=== PATIENT | male | born 1950 | race Caucasian/White ===

== ENCOUNTER → 2017-02-25 | Outpatient (CLI) | payer MEDICARE | END | disposition home or self-care (01) | LOC: CVU 09:24 | PROVIDERS: ATTEND Internal Medicine Cardiovascular Disease | DX: I70.203 Unspecified atherosclerosis of native arteries of extremities, bilateral legs (principal); I25.10 Atherosclerotic heart disease of native coronary artery without angina pectoris; E78.5 Hyperlipidemia, unspecified; Z95.5 Presence of coronary angioplasty implant and graft; Z87.891 Personal history of nicotine dependence | CPT/HCPCS: 93922; 93925; 93978 ==

== ENCOUNTER → 2017-12-16 | Outpatient (CLI) | payer MEDICARE ==
[~2017-12-16] MED LIST: AMLO10TA6 PO; ASPI-496 PO; FINA5TAB4 PO; LEVO137T3 PO; ROSU40TA PO; VALS1TAB26 PO
== END | disposition home or self-care (01) ==
LOC: RAD 10:09
PROVIDERS: ATTEND Urology
DX: N20.0 Calculus of kidney (principal); M51.36 Other intervertebral disc degeneration, lumbar region; M41.86 Other forms of scoliosis, lumbar region; N23 Unspecified renal colic; K40.20 Bilateral inguinal hernia, without obstruction or gangrene, not specified as recurrent; Z87.891 Personal history of nicotine dependence
CPT/HCPCS: 74176

== ENCOUNTER 2017-12-17 05:41 | Day surgery (SDC) | payer MEDICARE ==
[~2017-12-17] VITALS: Ht 180.3 cm; Wt 97.0 kg
[2017-12-17 06:32] VITALS: BP 128/79
[2017-12-17] MEDS ORDERED: LACTATED RINGERS 1,000 ML IV SCH (06:32)
[2017-12-17] MEDS ORDERED: GABAPENTIN 300 MG CAPSULE ONE (07:08)
[2017-12-17] MEDS ORDERED: ONDANSETRON ODT 8 MG ONE (07:09)
[2017-12-17] MEDS ORDERED: ACETAMINOPHEN 500 MG TABLET ONE (07:10)
[2017-12-17] MEDS ORDERED: GABAPENTIN 300 MG CAPSULE PO ONE (07:30)
[2017-12-17] MEDS ORDERED: ONDANSETRON ODT 8 MG PO ONE (07:30)
[2017-12-17] MEDS ORDERED: ACETAMINOPHEN 500 MG TABLET PO ONE (07:30)
[2017-12-17] MEDS ORDERED: FENTANYL PF 100 MCG/2ML ONE (07:31)
[2017-12-17] MEDS ORDERED: MIDAZOLAM 1 MG/ML, 2ML ONE (07:31)
[2017-12-17] MEDS ORDERED: EPHEDRINE 50 MG/ML, 1ML ONE (07:46)
[2017-12-17] MEDS ORDERED: FENTANYL PF 100 MCG/2ML IV PRN (08:30)
[2017-12-17] MEDS ORDERED: PROMETHAZINE 25 MG SUPP PR PRN (08:30)
[2017-12-17] MEDS ORDERED: ALBUTEROL/IPRATROPIUM 2.5MG/0.5MG, 3 ML NPPB PRN (08:30)
[2017-12-17] MEDS ORDERED: OXYcodone 5 MG/5 ML ORAL.SOL UDC PO PRN (08:30)
[2017-12-17] MEDS ORDERED: METOPROLOL 1 MG/ML, 5ML IV PRN (08:30)
[2017-12-17] MEDS ORDERED: ONDANSETRON ODT 8 MG PO PRN (08:30)
[2017-12-17] MEDS ORDERED: CEFAZOLIN 1,000 MG ONE (08:32)
[2017-12-17] MEDS ORDERED: PROPOFOL 10 MG/ML, 20ML ONE (08:32)
[2017-12-17] MEDS ORDERED: DEXAMETHASONE 4 MG/ML, 1ML ONE (08:32)
== END 2017-12-17 10:40 | disposition home or self-care (01) ==
LOC: OUT 05:41
PROVIDERS: ATTEND Urology
DX: N20.0 Calculus of kidney (principal); I10 Essential (primary) hypertension; E78.00 Pure hypercholesterolemia, unspecified; E03.9 Hypothyroidism, unspecified; Z72.89 Other problems related to lifestyle; Z79.82 Long term (current) use of aspirin
CPT/HCPCS: 50590; 93005; J0690; J1100; J2250; J2704; J3010; J7120; Q0162